=== PATIENT | female | born 1930 | race Caucasian/White ===

== ENCOUNTER 2016-05-26 13:25 | Inpatient (IN) | payer OTHER, BC ==
[2016-05-26] VITALS (7 sets, daily range): BP systolic 106–134; BP diastolic 62–87
[~2016-05-26] VITALS: Ht 152.4 cm; Wt 77.5 kg
[~2016-05-26 13:25] MED LIST: ALLOPURINOL100 MG PO; FUROSEMIDE20 MG PO; LOSARTAN POTAS100 MG PO; METOPROLOL SUCC25 MG PO; ONE DAILY WOME1 EACH PO; SIMVASTATIN40 MG PO; VITAMIN B-12250 MCG PO
[2016-05-26 14:11] LABS: EOSINOPHIL (%) 0.4 % (0-5); HEMATOCRIT 21.9 % (36.0-46.0); IMMATURE GRANULOCYTE (%) 0.4 % (0.0-0.7); INSTRUMENT ABS NEUTROPHIL CT 4.9 K/uL; LYMPHOCYTE COUNT 0.4 K/uL (1.0-2.8); MCH 29.7 PG (29.0-34.0); MCHC 31.1 G/DL (30.0-36.0); MCV 95.6 FL (83-99); MEAN PLAT.VOLUME 9.6 uM^3 (9.5-12.4); MONOCYTE COUNT 0.3 K/uL (0-0.8); NEUTROPHIL (%) 86.1 % (45-76); NEUTROPHIL COUNT 4.9 K/uL (1.8-6.4); PLATELET COUNT 124 K/uL (156-360); RBC DIS.WIDTH-CV 15.2 % (11.8-14.6); RED BLOOD COUNT 2.29 M/uL (3.80-5.20); WHITE BLOOD COUNT 5.7 K/uL (4.1-10.2)
[2016-05-26 14:14] LABS: CHLORIDE 110 mEq/L (99-109); POTASSIUM 3.6 mEq/L (3.7-5.4); SODIUM 142 mEq/L (136-147)
[2016-05-26 14:16] LABS: GLUCOSE 166 mg/dL (70-99)
[2016-05-26 14:17] LABS: ANION GAP 9 MEQ/L (2-14)
[2016-05-26 14:18] LABS: TOTAL BILIRUBIN 0.8 mg/dL (0.0-1.0)
[2016-05-26 14:20] LABS: ALKALINE PHOSPHATASE 87 IU/L (3-129); GFR ESTIMATE (CALCULATED) 35 mL/min/
[2016-05-26 14:21] LABS: ADD MIUA? YES; BILIRUBIN NEGATIVE; BLOOD NEGATIVE; COLOR YELLOW ((YELLOW)); GLUCOSE (STRIP) NEGATIVE; KETONES NEGATIVE; LEUKOCYTES NEGATIVE; NITRITE NEGATIVE; PROTEIN (STRIP) NEGATIVE; UROBILINOGEN 0.2 MG/DL (0.2-1.0)
[2016-05-26 14:21] LABS: UREA NITROGEN (BUN) 60 mg/dL (9-23)
[2016-05-26 14:23] LABS: LIPASE 123 U/L (1.0-51.0)
[2016-05-26 14:26] LABS: TROP-I INTERPRETATION NEGATIVE; TROPONIN-I 0.04 ng/mL (0.0-0.30)
[2016-05-26 14:31] LABS: BACTERIA 1+ /HPF; EPITHELIAL CELLS RARE /HPF; MUCUS TRACE /LPF; RED BLOOD CELLS 0-5 /HPF (0-5); WHITE BLOOD CELLS 0-5 /HPF (0-5)
[2016-05-26 21:08] LABS: MCV 92.1 FL (83-99)
[2016-05-27 00:05] VITALS: BP 113/53
[2016-05-27 04:16] VITALS: BP 92/55
[2016-05-27 06:17] LABS: HEMATOCRIT 26.9 % (36.0-46.0); MCH 29.3 PG (29.0-34.0); MCV 91.5 FL (83-99); MEAN PLAT.VOLUME 10.3 uM^3 (9.5-12.4); PLATELET COUNT 118 K/uL (156-360); RBC DIS.WIDTH-CV 15.7 % (11.8-14.6); RBC DIS.WIDTH-SD 51.3 % (39-53); WHITE BLOOD COUNT 5.2 K/uL (4.1-10.2)
[2016-05-27 06:19] LABS: RED BLOOD COUNT 2.94 M/uL (3.80-5.20)
[2016-05-27 06:26] LABS: INTER. NORMALIZED RATIO 1.1; PTT 23.1 (25-32)
[2016-05-27 06:42] LABS: ANION GAP 7 MEQ/L (2-14); CHLORIDE 112 MEQ/L (99-109); GFR ESTIMATE (CALCULATED) 50 mL/min/; POTASSIUM 3.5 MEQ/L (3.7-5.4); SAMPLE HEMOLYSIS CHECK 0; SAMPLE ICTERIC CHECK 0; SAMPLE LIPEMIA CHECK 0; SODIUM 144 MEQ/L (136-147); UREA NITROGEN (BUN) 46 mg/dL (9-23)
[2016-05-27 06:45] LABS: GLUCOSE 108 mg/dL (70-99)
[2016-05-27 07:26] VITALS: BP 87/51
[2016-05-27 11:31] VITALS: BP 109/56
[2016-05-27 15:38] VITALS: BP 130/61
[2016-05-27 15:58] LABS: HEMATOCRIT 27.5 % (36.0-46.0); MCV 92.6 FL (83-99)
[2016-05-27 19:10] VITALS: BP 137/64
[2016-05-28] VITALS (7 sets, daily range): BP systolic 103–156; BP diastolic 57–66
[2016-05-28 00:33] LABS: HEMATOCRIT 28.2 % (36.0-46.0); MCV 92.8 FL (83-99)
[2016-05-28 09:17] LABS: EOSINOPHIL (%) 3.3 % (0-5); EOSINOPHIL COUNT 0.1 K/uL (0-0.3); HEMATOCRIT 27.6 % (36.0-46.0); INSTRUMENT ABS NEUTROPHIL CT 2.4 K/uL; LYMPHOCYTE COUNT 0.9 K/uL (1.0-2.8); MCH 29.5 PG (29.0-34.0); MCHC 31.9 G/DL (30.0-36.0); MCV 92.6 FL (83-99); MEAN PLAT.VOLUME 10.1 uM^3 (9.5-12.4); MONOCYTE COUNT 0.5 K/uL (0-0.8); NEUTROPHIL (%) 60.5 % (45-76); NEUTROPHIL COUNT 2.4 K/uL (1.8-6.4); PLATELET COUNT 104 K/uL (156-360); RBC DIS.WIDTH-CV 15.5 % (11.8-14.6); RBC DIS.WIDTH-SD 52.5 % (39-53); RED BLOOD COUNT 2.98 M/uL (3.80-5.20); WHITE BLOOD COUNT 3.9 K/uL (4.1-10.2)
[2016-05-28 09:25] LABS: ANION GAP 7 MEQ/L (2-14); CHLORIDE 117 MEQ/L (99-109); POTASSIUM 3.9 MEQ/L (3.7-5.4); SAMPLE HEMOLYSIS CHECK 0; SAMPLE ICTERIC CHECK 0; SAMPLE LIPEMIA CHECK 0; SODIUM 143 MEQ/L (136-147)
[2016-05-28 09:32] LABS: GFR ESTIMATE (CALCULATED) > 59 mL/min/; GLUCOSE 119 mg/dL (70-99)
[2016-05-28 09:36] LABS: UREA NITROGEN (BUN) 22 mg/dL (9-23)
[2016-05-28 15:41] LABS: POINT-OF-CARE METER ID UU13113819
[2016-05-28 17:09] LABS: HEMATOCRIT 29.3 % (36.0-46.0); MCV 94.5 FL (83-99)
[2016-05-29] VITALS (7 sets, daily range): BP systolic 130–151; BP diastolic 56–76
[2016-05-29 07:03] LABS: EOSINOPHIL COUNT 0.1 K/uL (0-0.3); HEMATOCRIT 26.2 % (36.0-46.0); IMMATURE GRANULOCYTE (%) 0.3 % (0.0-0.7); INSTRUMENT ABS NEUTROPHIL CT 2.4 K/uL; LYMPHOCYTE COUNT 0.7 K/uL (1.0-2.8); MCH 29.3 PG (29.0-34.0); MCHC 30.9 G/DL (30.0-36.0); MCV 94.9 FL (83-99); MEAN PLAT.VOLUME 10.1 uM^3 (9.5-12.4); MONOCYTE (%) 12.2 % (3-12); MONOCYTE COUNT 0.5 K/uL (0-0.8); NEUTROPHIL (%) 64.2 % (45-76); NEUTROPHIL COUNT 2.4 K/uL (1.8-6.4); PLATELET COUNT 112 K/uL (156-360); RED BLOOD COUNT 2.76 M/uL (3.80-5.20); WHITE BLOOD COUNT 3.7 K/uL (4.1-10.2)
[2016-05-29 07:24] LABS: ANION GAP 5 MEQ/L (2-14); CHLORIDE 114 MEQ/L (99-109); GFR ESTIMATE (CALCULATED) > 59 mL/min/; GLUCOSE 106 mg/dL (70-99); POTASSIUM 3.6 MEQ/L (3.7-5.4); SAMPLE HEMOLYSIS CHECK 0; SAMPLE ICTERIC CHECK 0; SAMPLE LIPEMIA CHECK 0; SODIUM 142 MEQ/L (136-147); UREA NITROGEN (BUN) 14 mg/dL (9-23)
[2016-05-29 19:14] LABS: HEMATOCRIT 34.1 % (36.0-46.0); MCV 93.4 FL (83-99)
[2016-05-30] VITALS (7 sets, daily range): BP systolic 119–170; BP diastolic 54–71
[2016-05-30 05:54] LABS: EOSINOPHIL (%) 3.4 % (0-5); EOSINOPHIL COUNT 0.2 K/uL (0-0.3); HEMATOCRIT 28.4 % (36.0-46.0); IMMATURE GRANULOCYTE (%) 0.2 % (0.0-0.7); INSTRUMENT ABS NEUTROPHIL CT 2.6 K/uL; MCH 28.5 PG (29.0-34.0); MCV 91.9 FL (83-99); MEAN PLAT.VOLUME 10.1 uM^3 (9.5-12.4); MONOCYTE (%) 13.9 % (3-12); MONOCYTE COUNT 0.6 K/uL (0-0.8); NEUTROPHIL (%) 60.2 % (45-76); NEUTROPHIL COUNT 2.6 K/uL (1.8-6.4); PLATELET COUNT 113 K/uL (156-360); RBC DIS.WIDTH-SD 50.1 % (39-53); RED BLOOD COUNT 3.09 M/uL (3.80-5.20); WHITE BLOOD COUNT 4.4 K/uL (4.1-10.2)
[2016-05-30 06:37] LABS: ANION GAP 7 MEQ/L (2-14); CHLORIDE 114 MEQ/L (99-109); POTASSIUM 3.9 MEQ/L (3.7-5.4); SAMPLE HEMOLYSIS CHECK 0; SAMPLE ICTERIC CHECK 0; SAMPLE LIPEMIA CHECK 0; SODIUM 143 MEQ/L (136-147); TOTAL BILIRUBIN 1.1 MG/DL (0.0-1.0)
[2016-05-30 06:42] LABS: ALKALINE PHOSPHATASE 85 IU/L (3-129); GFR ESTIMATE (CALCULATED) > 59 mL/min/; GLUCOSE 97 mg/dL (70-99); UREA NITROGEN (BUN) 12 mg/dL (9-23)
[2016-05-30 15:11] LABS: HEMATOCRIT 31.8 % (36.0-46.0); MCV 90.6 FL (83-99)
[2016-05-31 02:59] VITALS: BP 135/63
[2016-05-31 06:40] LABS: HEMATOCRIT 32.2 % (36.0-46.0); MCH 28.7 PG (29.0-34.0); MCHC 31.4 G/DL (30.0-36.0); MCV 91.5 FL (83-99); MEAN PLAT.VOLUME 9.2 uM^3 (9.5-12.4); PLATELET COUNT 123 K/uL (156-360); RBC DIS.WIDTH-CV 14.4 % (11.8-14.6); RBC DIS.WIDTH-SD 48.3 % (39-53); RED BLOOD COUNT 3.52 M/uL (3.80-5.20); WHITE BLOOD COUNT 5.3 K/uL (4.1-10.2)
[2016-05-31 07:04] LABS: ANION GAP 5 MEQ/L (2-14); CHLORIDE 115 MEQ/L (99-109); GFR ESTIMATE (CALCULATED) > 59 mL/min/; GLUCOSE 88 mg/dL (70-99); POTASSIUM 4.3 MEQ/L (3.7-5.4); SAMPLE HEMOLYSIS CHECK 0; SAMPLE ICTERIC CHECK 0; SAMPLE LIPEMIA CHECK 0; SODIUM 145 MEQ/L (136-147); UREA NITROGEN (BUN) 13 mg/dL (9-23)
[2016-05-31 08:27] VITALS: BP 125/74
[2016-05-31] MEDS ORDERED: PANTOPRAZOLE SO40 MG PO (10:59)
== END 2016-05-31 13:04 | disposition home health service (06) | DRG 378 ==
LOC: EME 13:25 → 4EAST 15:59 → EDOF 15:59 → 4EAST 19:15
PROVIDERS: Emergency Medicine; Hospitalist; Internal Medicine Gastroenterology; Student in an Organized Health Care Education/Training Program
PROC: 30233N1 Transfusion of Nonautologous Red Blood Cells into Peripheral Vein, Percutaneous Approach (ICD-10-PCS; principal; 2016-05-26)
PROC: 0DB68ZX Excision of Stomach, Via Natural or Artificial Opening Endoscopic, Diagnostic (ICD-10-PCS; 2016-05-28)
PROC: 0DJ08ZZ Inspection of Upper Intestinal Tract, Via Natural or Artificial Opening Endoscopic (ICD-10-PCS; 2016-05-28)
PROC: 0DB98ZX Excision of Duodenum, Via Natural or Artificial Opening Endoscopic, Diagnostic (ICD-10-PCS; 2016-05-28)
DX: K92.2 Gastrointestinal hemorrhage, unspecified (principal); D62 Acute posthemorrhagic anemia; N17.9 Acute kidney failure, unspecified; D61.818 Other pancytopenia; D13.2 Benign neoplasm of duodenum; K57.30 Diverticulosis of large intestine without perforation or abscess without bleeding; K29.60 Other gastritis without bleeding; K26.9 Duodenal ulcer, unspecified as acute or chronic, without hemorrhage or perforation; D12.6 Benign neoplasm of colon, unspecified; D51.9 Vitamin B12 deficiency anemia, unspecified; I95.9 Hypotension, unspecified; M10.9 Gout, unspecified; R56.9 Unspecified convulsions; J44.9 Chronic obstructive pulmonary disease, unspecified; I10 Essential (primary) hypertension; K21.9 Gastro-esophageal reflux disease without esophagitis; I44.0 Atrioventricular block, first degree; K74.60 Unspecified cirrhosis of liver; G43.909 Migraine, unspecified, not intractable, without status migrainosus; F31.9 Bipolar disorder, unspecified; I25.10 Atherosclerotic heart disease of native coronary artery without angina pectoris; Z95.5 Presence of coronary angioplasty implant and graft; K86.89 Other specified diseases of pancreas; E78.5 Hyperlipidemia, unspecified; Z87.891 Personal history of nicotine dependence; Z66 Do not resuscitate
CPT/HCPCS: 74176; 80048; 80053; 80069; 81003; 82948; 83690; 84100; 84484; 85014; 85018; 85025; 85027; 85610; 85730; 86850; 86900; 86901; 86920; 87493; 88305; 88342 TC; 93005; 99281; 99285; C9113; J7042; P9016

== ENCOUNTER 2016-07-22 11:02 | Inpatient (IN) | payer OTHER, BC ==
[~2016-07-22] VITALS: Ht 162.6 cm; Wt 75.4 kg
[2016-07-22] VITALS (8 sets, daily range): BP systolic 130–149; BP diastolic 60–80
[~2016-07-22 11:02] MED LIST changes: +PANTOPRAZOLE SO40 MG PO
[2016-07-22 11:46] LABS: POINT-OF-CARE METER ID UU13113702
[2016-07-22 12:03] LABS: EOSINOPHIL (%) 2.5 % (0-5); EOSINOPHIL COUNT 0.1 K/uL (0-0.3); HEMATOCRIT 27.7 % (36.0-46.0); IMMATURE GRANULOCYTE (%) 0.6 % (0.0-0.7); INSTRUMENT ABS NEUTROPHIL CT 3.1 K/uL; LYMPHOCYTE COUNT 1.1 K/uL (1.0-2.8); MCH 26.2 PG (29.0-34.0); MCHC 30.3 G/DL (30.0-36.0); MCV 86.3 FL (83-99); MEAN PLAT.VOLUME 10.1 uM^3 (9.5-12.4); MONOCYTE (%) 8.9 % (3-12); MONOCYTE COUNT 0.4 K/uL (0-0.8); NEUTROPHIL (%) 65.4 % (45-76); NEUTROPHIL COUNT 3.1 K/uL (1.8-6.4); PLATELET COUNT 115 K/uL (156-360); RBC DIS.WIDTH-CV 15.1 % (11.8-14.6); RBC DIS.WIDTH-SD 47.1 % (39-53); RED BLOOD COUNT 3.21 M/uL (3.80-5.20); WHITE BLOOD COUNT 4.7 K/uL (4.1-10.2)
[2016-07-22 12:13] LABS: INTER. NORMALIZED RATIO 1.1; PROTHROMBIN TIME 10.7 (9.2-11.2)
[2016-07-22 12:22] LABS: CHLORIDE 109 mEq/L (99-109); SODIUM 143 mEq/L (136-147)
[2016-07-22 12:24] LABS: GLUCOSE 107 mg/dL (70-99)
[2016-07-22 12:25] LABS: ANION GAP 7 MEQ/L (2-14)
[2016-07-22 12:28] LABS: GFR ESTIMATE (CALCULATED) 50 mL/min/
[2016-07-22 12:29] LABS: UREA NITROGEN (BUN) 38 mg/dL (9-23)
[2016-07-22] MEDS ORDERED: CYANOCOBALAM1000 MCG PO (13:03)
[2016-07-22] MEDS ORDERED: PANTOPRAZOLE SO40 MG PO (13:04)
[2016-07-22] MEDS ORDERED: CRAMP PO (13:09)
[2016-07-22 21:33] LABS: POINT-OF-CARE METER ID UU14174225
[2016-07-23] VITALS (7 sets, daily range): BP systolic 99–135; BP diastolic 56–104
[2016-07-23 01:07] LABS: HEMATOCRIT 33.7 % (36.0-46.0)
[2016-07-23 07:23] LABS: HEMATOCRIT 33.1 % (36.0-46.0); MCH 26.6 PG (29.0-34.0); MCHC 31.7 G/DL (30.0-36.0); MCV 83.8 FL (83-99); MEAN PLAT.VOLUME 10.6 uM^3 (9.5-12.4); PLATELET COUNT 121 K/uL (156-360); RBC DIS.WIDTH-CV 15.9 % (11.8-14.6); RBC DIS.WIDTH-SD 47.8 % (39-53); WHITE BLOOD COUNT 4.9 K/uL (4.1-10.2)
[2016-07-23 07:39] LABS: RED BLOOD COUNT 3.95 M/uL (3.80-5.20)
[2016-07-23 17:00] LABS: POINT-OF-CARE METER ID UU13113819
[2016-07-23 20:11] LABS: HEMATOCRIT 33.9 % (36.0-46.0)
[2016-07-24 04:11] VITALS: BP 97/54
[2016-07-24 07:00] LABS: HEMATOCRIT 31.9 % (36.0-46.0); MCH 27.1 PG (29.0-34.0); MCHC 31.7 G/DL (30.0-36.0); MCV 85.5 FL (83-99); MEAN PLAT.VOLUME 10.4 uM^3 (9.5-12.4); PLATELET COUNT 100 K/uL (156-360); RBC DIS.WIDTH-CV 15.9 % (11.8-14.6); RBC DIS.WIDTH-SD 49.2 % (39-53); RED BLOOD COUNT 3.73 M/uL (3.80-5.20); WHITE BLOOD COUNT 3.4 K/uL (4.1-10.2)
[2016-07-24 08:06] VITALS: BP 139/68
[2016-07-24 08:58] LABS: HEMATOCRIT 37.6 % (36.0-46.0); MCV 87.4 FL (83-99)
[2016-07-24 10:56] VITALS: BP 116/67
== END 2016-07-24 13:34 | disposition home or self-care (01) | DRG 379 ==
LOC: EME 11:02 → 5SOUTH 12:34 → EDOF 12:34 → 5SOUTH 15:24
PROVIDERS: Emergency Medicine; Internal Medicine; Internal Medicine Gastroenterology
PROC: 30233N1 Transfusion of Nonautologous Red Blood Cells into Peripheral Vein, Percutaneous Approach (ICD-10-PCS; principal; 2016-07-23)
DX: K92.2 Gastrointestinal hemorrhage, unspecified (principal); K31.7 Polyp of stomach and duodenum; D50.0 Iron deficiency anemia secondary to blood loss (chronic); D69.6 Thrombocytopenia, unspecified; J44.9 Chronic obstructive pulmonary disease, unspecified; I25.10 Atherosclerotic heart disease of native coronary artery without angina pectoris; I10 Essential (primary) hypertension; F31.9 Bipolar disorder, unspecified; I87.2 Venous insufficiency (chronic) (peripheral); Z87.891 Personal history of nicotine dependence; Z68.28 Body mass index [BMI] 28.0-28.9, adult; Z90.49 Acquired absence of other specified parts of digestive tract; Z95.5 Presence of coronary angioplasty implant and graft
CPT/HCPCS: 80048; 82948; 85014; 85018; 85025; 85027; 85610; 86900; 86901; 86920; 88305; 88342 TC; 99202; 99281; 99285; C9113; J1815; J1940; P9016

== ENCOUNTER 2016-09-10 08:52 | Observation (INO) | payer OTHER, BC ==
[~2016-09-10] VITALS: Ht 160 cm; Wt 71.0 kg
[~2016-09-10 08:52] MED LIST changes: +CRAMP PO; +CYANOCOBALAM1000 MCG PO
[2016-09-10 10:04] LABS: EOSINOPHIL (%) 2.1 % (0-5); EOSINOPHIL COUNT 0.1 K/uL (0-0.3); HEMATOCRIT 31.7 % (36.0-46.0); IMMATURE GRANULOCYTE (%) 0.2 % (0.0-0.7); INSTRUMENT ABS NEUTROPHIL CT 2.8 K/uL; LYMPHOCYTE COUNT 0.9 K/uL (1.0-2.8); MCH 27.3 PG (29.0-34.0); MCHC 31.2 G/DL (30.0-36.0); MCV 87.6 FL (83-99); MEAN PLAT.VOLUME 10.2 uM^3 (9.5-12.4); MONOCYTE (%) 13.2 % (3-12); MONOCYTE COUNT 0.6 K/uL (0-0.8); NEUTROPHIL (%) 63.3 % (45-76); NEUTROPHIL COUNT 2.8 K/uL (1.8-6.4); PLATELET COUNT 112 K/uL (156-360); RBC DIS.WIDTH-CV 17.5 % (11.8-14.6); RBC DIS.WIDTH-SD 56.9 % (39-53); RED BLOOD COUNT 3.62 M/uL (3.80-5.20); WHITE BLOOD COUNT 4.4 K/uL (4.1-10.2)
[2016-09-10 10:11] LABS: INTER. NORMALIZED RATIO 1.1; PROTHROMBIN TIME 11.6 SEC (10.2-12.9)
[2016-09-10 10:36] LABS: ANION GAP 10 MEQ/L (2-14); CHLORIDE 106 MEQ/L (99-109); SAMPLE HEMOLYSIS CHECK 0; SAMPLE ICTERIC CHECK 0; SAMPLE LIPEMIA CHECK 0; SODIUM 143 MEQ/L (136-147)
[2016-09-10 10:42] LABS: GFR ESTIMATE (CALCULATED) 50 mL/min/; GLUCOSE 112 mg/dL (70-99); UREA NITROGEN (BUN) 37 mg/dL (9-23)
[2016-09-10] MEDS ORDERED: MAGNESIUM200 MG PO (11:32)
[2016-09-10 15:50] VITALS: BP 124/58
[2016-09-10 20:09] LABS: HEMATOCRIT 29.7 % (36.0-46.0); MCV 88.4 FL (83-99)
[2016-09-10 20:12] VITALS: BP 121/59
[2016-09-11 04:27] VITALS: BP 103/51
[2016-09-11 09:19] LABS: HEMATOCRIT 30.3 % (36.0-46.0); MCH 27.5 PG (29.0-34.0); MCHC 31.4 G/DL (30.0-36.0); MCV 87.6 FL (83-99); MEAN PLAT.VOLUME 10.2 uM^3 (9.5-12.4); PLATELET COUNT 107 K/uL (156-360); RBC DIS.WIDTH-CV 17.7 % (11.8-14.6); RBC DIS.WIDTH-SD 56.7 % (39-53); RED BLOOD COUNT 3.46 M/uL (3.80-5.20); WHITE BLOOD COUNT 3.3 K/uL (4.1-10.2)
[2016-09-11 09:36] LABS: ANION GAP 8 MEQ/L (2-14); CHLORIDE 107 MEQ/L (99-109); GFR ESTIMATE (CALCULATED) 50 mL/min/; GLUCOSE 88 mg/dL (70-99); POTASSIUM 4.1 MEQ/L (3.7-5.4); SAMPLE HEMOLYSIS CHECK 0; SAMPLE ICTERIC CHECK 0; SAMPLE LIPEMIA CHECK 0; SODIUM 142 MEQ/L (136-147); UREA NITROGEN (BUN) 27 mg/dL (9-23)
== END 2016-09-11 15:36 | disposition home or self-care (01) ==
LOC: EME 08:52 → 5WEST 10:56 → EDOF 10:56 → 5WEST 12:07
PROVIDERS: Emergency Medicine; Internal Medicine; Internal Medicine Gastroenterology
PROC: 0DB98ZX Excision of Duodenum, Via Natural or Artificial Opening Endoscopic, Diagnostic (ICD-10-PCS; principal; 2016-09-11)
DX: K92.1 Melena (principal); K29.70 Gastritis, unspecified, without bleeding; K26.9 Duodenal ulcer, unspecified as acute or chronic, without hemorrhage or perforation; K29.80 Duodenitis without bleeding; J44.9 Chronic obstructive pulmonary disease, unspecified; I10 Essential (primary) hypertension; K21.9 Gastro-esophageal reflux disease without esophagitis; Z87.891 Personal history of nicotine dependence; D50.9 Iron deficiency anemia, unspecified; E66.9 Obesity, unspecified; E78.5 Hyperlipidemia, unspecified; I25.10 Atherosclerotic heart disease of native coronary artery without angina pectoris; F31.9 Bipolar disorder, unspecified; K31.7 Polyp of stomach and duodenum; K74.60 Unspecified cirrhosis of liver; K44.9 Diaphragmatic hernia without obstruction or gangrene; E55.9 Vitamin D deficiency, unspecified; I87.2 Venous insufficiency (chronic) (peripheral)
CPT/HCPCS: 80048; 80069; 85014; 85018; 85025; 85027; 85610; 85730; 86900; 86901; 88305; 93005; 99281; 99284; C9113; G0378; J0696; J7050